=== PATIENT | female | born 1990 | race African-American/Black ===

== ENCOUNTER 2017-07-12 10:17 | Emergency (ER) | payer MEDICAID ==
[~2017-07-12] VITALS: Ht 167.6 cm; Wt 50.0 kg
[2017-07-12] MEDS ORDERED: MORPHINE SULFATE 2 MG/ML CPJ (NOT FOR IM USE) IV ONE (11:00)
[2017-07-12] MEDS ORDERED: MORPHINE SULFATE 4 MG/ML CPJ (NOT FOR IM USE) IV ONE (11:00)
[2017-07-12] MEDS ORDERED: KETOROLAC 30MG/ML VIAL IV ONE (11:00)
[2017-07-12 14:51] VITALS: BP 110/63
== END 2017-07-12 14:54 | disposition home or self-care (01) ==
LOC: ER 10:26
DX: S50.02XA Contusion of left elbow, initial encounter (principal); W06.XXXA Fall from bed, initial encounter; Y93.89 Activity, other specified; Y92.89 Other specified places as the place of occurrence of the external cause; Y99.8 Other external cause status
CPT/HCPCS: 73060; 73080; 73090; 81025; 96374; 96375; 99284; J1885; J2270; Z7610

== ENCOUNTER 2017-09-02 07:59 | Emergency (ER) | payer MEDICAID ==
[~2017-09-02] VITALS: Ht 162.6 cm; Wt 53.0 kg
[2017-09-02] MEDS ORDERED: SODIUM CHLORIDE 0.9% 1,000 ML IV ONE (08:59)
[2017-09-02] MEDS ORDERED: KETOROLAC 30MG/ML VIAL IV STA (08:59)
[2017-09-02] MEDS ORDERED: ONDANSETRON HCL 4MG/2ML VIAL IV STA (08:59)
[2017-09-02 09:39] LABS: BASOPHILS % 1.2 % (0.0-2.0); EOSINOPHILS % 0.8 % (0.0-5.0); HEMATOCRIT. 33.1 % (36.0-48.0); HEMOGLOBIN. 10.7 g/dL (12.0-16.0); LYMPHOCYTES % 28.6 % (20.0-50.0); MEAN CORPUSCULAR HEMOGLOBIN 24.6 pg (28.0-32.0); MEAN CORPUSCULAR VOLUME 76.4 fL (81.0-99.0); MEAN PLATELET VOLUME 8.4 fl (7.4-10.4); MONOCYTES % 4.6 % (2.0-8.0); NEUTROPHILS % 64.8 % (40.0-76.0); PLATELET 209 x1000/uL (130-400); RED BLOOD CELL COUNT 4.34 mill/uL (4.2-5.4); RED CELL DISTRIBUTION WIDTH 14.4 % (11.6-14.6)
[2017-09-02 09:42] LABS: CLARITY URINE CLEAR (CLEAR); COLOR URINE YELLOW (YELLOW); KETONES URINE TRACE (NEGATIVE); LEUKOCYTE ESTERASE URINE NEGATIVE (NEGATIVE); NITRITE URINE NEGATIVE (NEGATIVE); OCCULT BLOOD URINE NEGATIVE (NEGATIVE); PH URINE 5.5 (4.5-8.0); PROTEIN URINE NEGATIVE (NEGATIVE); SPECIFIC GRAVITY URINE 1.024 (1.005-1.030)
[2017-09-02 09:46] LABS: CHLORIDE 108 mEq/L (98-107); INR 1.1; PROTHROMBIN TIME 11.1 sec (9.4-11.6)
[2017-09-02 09:59] LABS: ETHANOL BLOOD < 10 mg/dL
[2017-09-02 11:42] VITALS: BP 108/78
[2017-09-06] MEDS ORDERED: TRAM50TA3 PO (08:23)
[2017-09-06] MEDS ORDERED: ONDA4TAB11 PO (08:23)
[2017-09-06] MEDS ORDERED: LANS15CA12 PO (08:23)
== END 2017-09-02 11:43 | disposition home or self-care (01) ==
LOC: ER 07:59
DX: K52.9 Noninfective gastroenteritis and colitis, unspecified (principal); F12.10 Cannabis abuse, uncomplicated
CPT/HCPCS: 36415; 80053; 81003; 81025; 83690; 85025; 85610; 96361; 96374; 96375; 99285; G0482; J1885; J2405; J7030; Z7610

== ENCOUNTER 2017-10-19 15:24 | Emergency (ER) | payer MEDICAID ==
[~2017-10-19] VITALS: Ht 160 cm; Wt 50.0 kg
[~2017-10-19 15:24] MED LIST: LANS15CA12 PO; ONDA4TAB11 PO; TRAM50TA3 PO
[2017-10-19] MEDS ORDERED: ACETAMINOPHEN WITH CODEINE 300/30MG TABLET PO ONE (16:45)
[2017-10-19 17:11] VITALS: BP 106/67
== END 2017-10-19 19:14 | disposition home or self-care (01) ==
LOC: ER 15:24
DX: S02.2XXA Fracture of nasal bones, initial encounter for closed fracture (principal); Y08.89XA Assault by other specified means, initial encounter; Y93.89 Activity, other specified; Y92.9 Unspecified place or not applicable
CPT/HCPCS: 70160; 81025; 99284

== ENCOUNTER 2018-06-07 17:08 | Emergency (ER) | payer MEDICAID ==
[~2018-06-07] VITALS: Ht 167.6 cm; Wt 53.0 kg
[2018-06-07 19:10] VITALS: BP 102/67
[2018-06-07] MEDS ORDERED: IBUPROFEN 600MG TABLET PO ONE (19:15)
== END 2018-06-07 19:20 | disposition home or self-care (01) ==
LOC: ER 17:08
DX: S30.810A Abrasion of lower back and pelvis, initial encounter (principal); V89.9XXA Person injured in unspecified vehicle accident, initial encounter; Y93.89 Activity, other specified; Y92.410 Unspecified street and highway as the place of occurrence of the external cause
CPT/HCPCS: 99283; Z7610

== ENCOUNTER 2021-05-21 10:42 | Emergency (ER) | payer MEDICAID ==
[~2021-05-21] VITALS: Ht 160 cm; Wt 53.0 kg
[2021-05-21] MEDS ORDERED: ACETAMINOPHEN WITH CODEINE 300/30MG TABLET PO STA (11:08)
[2021-05-21 11:50] LABS: BASOPHILS % 0.6 % (0.0-2.0); EOSINOPHILS % 0.1 % (0.0-5.0); HEMATOCRIT. 37.9 % (36.0-48.0); HEMOGLOBIN. 12.4 g/dL (12.0-16.0); LYMPHOCYTES % 15.1 % (20.0-50.0); MEAN CORPUSCULAR HEMOGLOBIN 26.3 pg (28.0-32.0); MEAN CORPUSCULAR VOLUME 80.7 fL (81.0-99.0); MEAN PLATELET VOLUME 7.8 fl (7.4-10.4); MONOCYTES % 3.4 % (2.0-8.0); NEUTROPHILS % 80.8 % (40.0-76.0); PLATELET 228 x1000/uL (130-400); RED BLOOD CELL COUNT 4.69 mill/uL (4.2-5.4); RED CELL DISTRIBUTION WIDTH 13.7 % (11.6-14.6)
[2021-05-21 12:01] LABS: HCG SCREEN NEGATIVE
[2021-05-21 12:04] LABS: CHLORIDE 108 mEq/L (98-107)
[2021-05-21 12:40] LABS: CLARITY URINE CLEAR (CLEAR); COLOR URINE YELLOW (YELLOW); KETONES URINE NEGATIVE (NEGATIVE); LEUKOCYTE ESTERASE URINE NEGATIVE (NEGATIVE); NITRITE URINE NEGATIVE (NEGATIVE); OCCULT BLOOD URINE TRACE (NEGATIVE); PROTEIN URINE NEGATIVE (NEGATIVE); SPECIFIC GRAVITY URINE 1.024 (1.005-1.030); UROBILINOGEN URINE 0.2 E.U./dL (0.2-1.0)
[2021-05-21] MEDS ORDERED: IBUP-2029 MT (14:48)
[2021-05-21 15:03] VITALS: BP 112/64
[2021-05-25 04:08] LABS: NEISSERIA GONORRHOEAE NAA Negative (Negative)
== END 2021-05-21 15:15 | disposition home or self-care (01) ==
LOC: ER 10:42
DX: D21.9 Benign neoplasm of connective and other soft tissue, unspecified (principal); F12.10 Cannabis abuse, uncomplicated; Z98.890 Other specified postprocedural states
CPT/HCPCS: 36415; 76830; 76856; 80053; 81003; 81025; 84703; 85025; 87210; 87491; 87591; 99284

== ENCOUNTER 2023-03-09 18:09 | Emergency (ER) | payer SELFPAY ==
[~2023-03-09] VITALS: Ht 167.6 cm; Wt 63.0 kg
[~2023-03-09 18:09] MED LIST changes: +IBUP-2029 MT
[2023-03-09 18:20] VITALS: BP 142/58; PULSE 106; RESP 16; TEMP 98.6; O2SAT 100
[2023-03-09 20:32] LABS: BASOPHILS % 0.3 % (0.0-2.0); HEMOGLOBIN. 13.4 g/dL (12.0-16.0); LYMPHOCYTES % 9.9 % (20.0-50.0); MEAN CORPUSCULAR HGB CONC 32.6 g/dL (31.0-37.0); MEAN CORPUSCULAR VOLUME 85.9 fL (81.0-99.0); MEAN PLATELET VOLUME 7.7 fl (7.4-10.4); MONOCYTES % 4.7 % (2.0-8.0); NEUTROPHILS % 85.1 % (40.0-76.0); PLATELET 225 x1000/uL (130-400); RED BLOOD CELL COUNT 4.78 mill/uL (4.2-5.4); RED CELL DISTRIBUTION WIDTH 14.2 % (11.6-14.6); WHITE BLOOD COUNT 9.2 x1000/uL (4.5-11.0)
[2023-03-09 20:45] LABS: ALANINE AMINOTRANSFERASE 20 IU/L (10-49); ASPARTATE AMINOTRANSFERASE 49 IU/L (<34); BILIRUBIN TOTAL 1.1 mg/dL (0.1-1.0); CALCIUM 9.8 mg/dL (8.7-10.4); CARBON DIOXIDE 22 mEq/L (21-32); CHLORIDE 101 mEq/L (98-107); CREATININE 0.9 mg/dL (0.6-1.0); GLUCOSE 78 mg/dL (70-105); HCG SCREEN NEGATIVE; POTASSIUM 4.3 mEq/L (3.5-5.1); PROTEIN TOTAL 8.6 g/dL (6.0-8.3); SODIUM 135 mEq/L (136-145); UREA NITROGEN BLOOD 17 mg/dL (9-23)
== END 2023-03-09 22:51 | disposition home or self-care (01) ==
LOC: ER 18:09
DX: R10.10 Upper abdominal pain, unspecified (principal); R07.89 Other chest pain; F12.10 Cannabis abuse, uncomplicated; V49.9XXA Car occupant (driver) (passenger) injured in unspecified traffic accident, initial encounter; Y93.89 Activity, other specified; Y92.89 Other specified places as the place of occurrence of the external cause; Y99.8 Other external cause status
CPT/HCPCS: 36415; 71111; 71250; 74176; 80053; 84703; 85025; 99284